=== PATIENT | female | born 1960 | race Caucasian/White ===

== ENCOUNTER 2016-08-11 09:57 | Emergency (ER) | payer MEDICAID ==
[~2016-08-11] VITALS: Ht 157.5 cm; Wt 98.9 kg
[2016-08-11 10:34] LABS: BASOPHIL % 1.2 % (0-2); PLATELET COUNT 198 x10^3mcL (130-400); RED CELL DISTRIBUTION WIDTH 13.5 % (11.5-14.5)
[2016-08-11 10:49] LABS: CALCIUM 8.5 mg/dL (8.5-10.1); CARBON DIOXIDE 24.3 mmol/L (21-32); CHLORIDE SERUM 110 mmol/L (98-107); CREATININE SERUM 0.7 mg/dL (0.6-1.0); GFR1 > 60 mL/min; GLUCOSE SERUM 108 mg/dL (74-106); POTASSIUM SERUM 3.9 mmol/L (3.5-5.1); SODIUM SERUM 144 mmol/L (136-145)
[2016-08-11 10:55] LABS: ALKALINE PHOSPHATASE 92 U/L (46-116); ALT/SGPT 34 U/L (14-59); AST/SGOT 25 U/L (15-37); BILIRUBIN TOTAL 0.29 mg/dL (0.20-1.00); CHOLESTEROL 166 mg/dL (<200); HDL CHOLESTEROL 47 mg/dL (40-60); PHOSPHOROUS 3.4 mg/dL (2.5-4.9); URIC ACID 4.2 mg/dL (2.6-6.0)
[2016-08-11 10:57] LABS: ALBUMIN 3.3 g/dL (3.4-5.0)
[2016-08-11 11:32] VITALS: BP 133/93
== END 2016-08-11 11:46 | disposition home or self-care (01) ==
LOC: ED 09:57
PROVIDERS: Emergency Medicine
DX: F45.8 Other somatoform disorders (principal); F41.9 Anxiety disorder, unspecified; F43.9 Reaction to severe stress, unspecified
CPT/HCPCS: 36415; 83880; Q0092

== ENCOUNTER 2017-01-02 22:48 | Emergency (ER) | payer SELFPAY ==
[2017-01-02 23:56] LABS: BASOPHIL % 0.4 % (0-2); PLATELET COUNT 203 x10^3mcL (130-400)
[2017-01-02 23:58] LABS: CALCIUM 8.9 mg/dL (8.5-10.1); CARBON DIOXIDE 29.7 mmol/L (21-32); CHLORIDE SERUM 106 mmol/L (98-107); CREATININE SERUM 0.7 mg/dL (0.6-1.0); GFR1 > 60 mL/min; GLUCOSE SERUM 116 mg/dL (74-106); POTASSIUM SERUM 4.1 mmol/L (3.5-5.1); SODIUM SERUM 142 mmol/L (136-145)
[2017-01-03 00:03] LABS: ALKALINE PHOSPHATASE 112 U/L (46-116); ALT/SGPT 40 U/L (14-59); AST/SGOT 21 U/L (15-37); BILIRUBIN TOTAL 0.3 mg/dL (0.20-1.00); TOTAL PROTEIN, SERUM 7.6 g/dL (6.4-8.2)
[2017-01-03 00:04] LABS: ALBUMIN 3.3 g/dL (3.4-5.0)
[2017-01-03 01:49] VITALS: BP 108/73
== END 2017-01-03 01:49 | disposition home or self-care (01) ==
LOC: ED 22:48
PROVIDERS: Emergency Medicine
DX: R51 Headache (principal); R41.0 Disorientation, unspecified
CPT/HCPCS: 36415